=== PATIENT | female | born 1975 | race Caucasian/White ===

== ENCOUNTER 2025-01-15 22:42 | Emergency (ER) | payer SELFPAY ==
[~2025-01-15] VITALS: Ht 152.4 cm; Wt 49.0 kg
[2025-01-15 22:56] VITALS: O2SAT 100
[2025-01-15] MEDS: KETOROLAC 30MG/ML VIAL IV STA (23:47)
[2025-01-15] MEDS: METOCLOPRAMIDE HCL 10MG/2ML VIAL IV ONE (23:47)
[2025-01-15] MEDS: SODIUM CHLORIDE 0.9% 1,000 ML IV ONE (23:53)
[2025-01-16 00:03] LABS: BASOPHILS % 0.6 % (0.0-2.0); EOSINOPHILS % 0.8 % (0.0-5.0); HEMATOCRIT. 41.5 % (36.0-48.0); HEMOGLOBIN. 14.4 g/dL (12.0-16.0); LYMPHOCYTES % 51.2 % (20.0-50.0); MEAN CORPUSCULAR HEMOGLOBIN 31.4 pg (28.0-32.0); MEAN CORPUSCULAR HGB CONC 34.8 g/dL (31.0-37.0); MEAN PLATELET VOLUME 8.8 fl (7.4-10.4); MONOCYTES % 7.2 % (2.0-8.0); NEUTROPHILS % 40.2 % (40.0-76.0); PLATELET 243 x1000/uL (130-400); RED CELL DISTRIBUTION WIDTH 14.2 % (11.6-14.6); WHITE BLOOD COUNT 7.7 x1000/uL (4.5-11.0)
[2025-01-16 00:16] LABS: CHLORIDE 103 mEq/L (98-107); POTASSIUM 3.6 mEq/L (3.5-5.1); SODIUM 139 mEq/L (136-145)
[2025-01-16 00:18] LABS: CARBON DIOXIDE 26 mEq/L (21-32)
[2025-01-16 00:19] LABS: CALCIUM 9.1 mg/dL (8.7-10.4)
[2025-01-16] MEDS: MECLIZINE 25MG TABLET PO ONE (00:22)
[2025-01-16 00:23] LABS: CREATININE 0.9 mg/dL (0.6-1.0); TROPONIN I HIGH SENSITIVITY 6 ng/L (3.0-34)
[2025-01-16 00:24] LABS: ETHANOL BLOOD < 10 mg/dL (<10); GLUCOSE 114 mg/dL (70-105); UREA NITROGEN BLOOD 20 mg/dL (9-23)
[2025-01-16] MEDS: MECLIZINE 25MG TABLET PO NR (00:24)
[2025-01-16 00:25] LABS: ALANINE AMINOTRANSFERASE 19 IU/L (10-49); ALBUMIN 4.1 g/dL (3.2-4.8); ASPARTATE AMINOTRANSFERASE 19 IU/L (<34)
[2025-01-16 00:26] LABS: BILIRUBIN DIRECT 0.3 mg/dL (<=3.0); BILIRUBIN TOTAL 1.6 mg/dL (0.1-1.0)
[2025-01-16 00:27] LABS: THYROID STIMULATING HORMONE 4.86 uIU/mL (0.55-4.78)
[2025-01-16 00:29] LABS: HCG SCREEN NEGATIVE
[2025-01-16 01:10] VITALS: BP 137/65; PULSE 66; RESP 10; TEMP 36.4; O2SAT 97
[2025-01-16 01:23] LABS: *AMPHETAMINES SCREEN URINE NEGATIVE (NEGATIVE); *BENZODIAZEPINES SCREEN URINE NEGATIVE (NEGATIVE)
[2025-01-16 01:24] LABS: *BARBITURATES SCREEN URINE NEGATIVE (NEGATIVE); *COCAINE SCREEN URINE NEGATIVE (NEGATIVE); CANNABINOID URINE SCREEN NEGATIVE (NEGATIVE); ECSTASY MDMA SCREEN URINE NEGATIVE (NEGATIVE); METHADONE URINE SCREEN NEGATIVE (NEGATIVE); OPIATES URINE SCREEN NEGATIVE (NEGATIVE); PHENCYCLIDINE URINE SCREEN NEGATIVE (NEGATIVE)
[2025-01-16] MEDS ORDERED: MECL-299 MT (02:31)
[2025-01-16] MEDS ORDERED: NAPR220C61 MT (02:31)
[2025-01-16 03:01] LABS: CLARITY URINE CLEAR (CLEAR); COLOR URINE YELLOW (YELLOW); GLUCOSE URINE NEGATIVE (NEGATIVE); KETONES URINE NEGATIVE (NEGATIVE); LEUKOCYTE ESTERASE URINE NEGATIVE (NEGATIVE); NITRITE URINE NEGATIVE (NEGATIVE); OCCULT BLOOD URINE NEGATIVE (NEGATIVE); PH URINE 5.5 (4.5-8.0); PROTEIN URINE NEGATIVE (NEGATIVE); UROBILINOGEN URINE 0.2 E.U./dL (0.2-1.0)
== END 2025-01-16 02:56 | disposition home or self-care (01) ==
LOC: ER 22:42
DX: R51.9 Headache, unspecified (principal); R42 Dizziness and giddiness; E11.9 Type 2 diabetes mellitus without complications; Z79.899 Other long term (current) drug therapy; W19.XXXA Unspecified fall, initial encounter; Y93.89 Activity, other specified; Y92.89 Other specified places as the place of occurrence of the external cause; Y99.8 Other external cause status
CPT/HCPCS: 80076; 80048; 81003; 80320; 82962 ×2; 84703; 84443; 85025; 84484; 36415; 93005; 96374; 96375; 99285; 80305; 70450; J8597; J1885; J2765; J7030; G0480